=== PATIENT | female | born 1950 | race African-American/Black ===

== ENCOUNTER 2016-03-25 12:03 | Emergency (ER) | payer OTHER ==
[~2016-03-25] VITALS: Ht 154.9 cm; Wt 107.0 kg
[2016-03-25 12:54] LABS: MCH 31.4 PG (29.0-34.0); MCHC 33.1 G/DL (30.0-36.0); MCV 94.6 FL (83-99); MEAN PLAT.VOLUME 9.2 uM^3 (9.5-12.4); PLATELET COUNT 304 K/uL (156-360); RBC DIS.WIDTH-CV 12.4 % (11.8-14.6); RBC DIS.WIDTH-SD 40.8 % (39-53); WHITE BLOOD COUNT 7.5 K/uL (4.1-10.2)
[2016-03-25 13:15] LABS: TROP-I INTERPRETATION NEGATIVE; TROPONIN-I < 0.01 ng/mL (0.0-0.30)
[2016-03-25] MEDS ORDERED: ATENOLOL50 MG PO (15:22)
[2016-03-25] MEDS ORDERED: LOSARTAN POTASS50 MG PO (15:23)
[2016-03-25] MEDS ORDERED: ALDACTAZIDE 251 EACH PO (15:24)
[2016-03-25] MEDS ORDERED: LO-DOSE ASPIRIN81 M2 PO (15:25)
[2016-03-25] MEDS ORDERED: MOTRIN400 MG PO (16:36)
[2016-03-25] MEDS ORDERED: PERCOCET 5/31 TABLET PO (16:36)
[2016-03-25 16:52] VITALS: BP 131/68
[2016-03-25 19:21] LABS: CHLORIDE 100 mEq/L (99-109); POTASSIUM 3.9 mEq/L (3.7-5.4); SODIUM 138 mEq/L (136-147)
[2016-03-25 19:23] LABS: GLUCOSE 139 mg/dL (70-99)
[2016-03-25 19:24] LABS: ANION GAP 12 MEQ/L (2-14)
[2016-03-25 19:27] LABS: GFR ESTIMATE (CALCULATED) > 59 mL/min/
[2016-03-25 19:28] LABS: UREA NITROGEN (BUN) 28 mg/dL (9-23)
== END 2016-03-25 17:10 | disposition home or self-care (01) ==
LOC: EME 12:03
DX: M17.11 Unilateral primary osteoarthritis, right knee (principal); R00.2 Palpitations; D64.9 Anemia, unspecified; R73.9 Hyperglycemia, unspecified; I10 Essential (primary) hypertension; Z86.718 Personal history of other venous thrombosis and embolism
CPT/HCPCS: 71020; 73564; 80048; 84484; 85027; 93005; 93971; 99281; 99285

== ENCOUNTER 2016-05-08 06:54 | Emergency (ER) | payer OTHER ==
[~2016-05-08] VITALS: Ht 154.9 cm; Wt 104.5 kg
[~2016-05-08 06:54] MED LIST: ALDACTAZIDE 251 EACH PO; ATENOLOL50 MG PO; LO-DOSE ASPIRIN81 M2 PO; LOSARTAN POTASS50 MG PO; MOTRIN400 MG PO; PERCOCET 5/31 TABLET PO
[2016-05-08] MEDS ORDERED: PROBENECID-COL1 EACH PO (07:36)
[2016-05-08 07:59] LABS: EOSINOPHIL (%) 2.8 % (0-5); EOSINOPHIL COUNT 0.2 K/uL (0-0.3); HEMATOCRIT 33.2 % (36.0-46.0); IMMATURE GRANULOCYTE (%) 0.3 % (0.0-0.7); IMMATURE GRANULOCYTE COUNT 0.2 K/uL; LYMPHOCYTE COUNT 1.4 K/uL (1.0-2.8); MCHC 33.4 G/DL (30.0-36.0); MCV 92.7 FL (83-99); MEAN PLAT.VOLUME 9.1 uM^3 (9.5-12.4); MONOCYTE (%) 9.6 % (3-12); MONOCYTE COUNT 0.6 K/uL (0-0.8); NEUTROPHIL (%) 66.1 % (45-76); NEUTROPHIL COUNT 4.4 K/uL (1.8-6.4); PLATELET COUNT 259 K/uL (156-360); RBC DIS.WIDTH-CV 12.4 % (11.8-14.6); RBC DIS.WIDTH-SD 40.4 % (39-53); RED BLOOD COUNT 3.58 M/uL (3.80-5.20); WHITE BLOOD COUNT 6.7 K/uL (4.1-10.2)
[2016-05-08 08:09] LABS: INTER. NORMALIZED RATIO 1.2; PROTHROMBIN TIME 12.1 (9.2-11.2)
[2016-05-08 08:24] LABS: ANION GAP 8 MEQ/L (2-14); CHLORIDE 100 MEQ/L (99-109); POTASSIUM 3.9 MEQ/L (3.7-5.4); SAMPLE HEMOLYSIS CHECK 0; SAMPLE ICTERIC CHECK 0; SAMPLE LIPEMIA CHECK 0; SODIUM 137 MEQ/L (136-147)
[2016-05-08 08:29] LABS: GFR ESTIMATE (CALCULATED) > 59 mL/min/; GLUCOSE 104 mg/dL (70-99); UREA NITROGEN (BUN) 21 mg/dL (9-23)
[2016-05-08] MEDS ORDERED: PERCOCET 5/31 TABLET PO (10:03)
[2016-05-08 10:25] VITALS: BP 118/68
== END 2016-05-08 10:27 | disposition home or self-care (01) ==
LOC: EME 06:54
PROVIDERS: Emergency Medicine
DX: S86.901A Unspecified injury of unspecified muscle(s) and tendon(s) at lower leg level, right leg, initial encounter (principal); M17.9 Osteoarthritis of knee, unspecified; X50.9XXA Other and unspecified overexertion or strenuous movements or postures, initial encounter; Z88.8 Allergy status to other drugs, medicaments and biological substances; I10 Essential (primary) hypertension; Z86.718 Personal history of other venous thrombosis and embolism
CPT/HCPCS: 71010; 80048; 85025; 85610; 93971; 99281; 99284

== ENCOUNTER 2016-11-02 20:56 | Inpatient (IN) | payer OTHER ==
[~2016-11-02] VITALS: Ht 152.4 cm; Wt 111.0 kg
[~2016-11-02 20:56] MED LIST changes: +ALDACTONE25 MG PO; +ASPIRIN81 M2 PO; +COZAAR100 MG PO; +FERROUS SULFAT325 MG PO; +GOUT MED; +HYDROCHLOROTHIA25 MG PO; +NORVASC10 MG PO; +PRAVACHOL10 MG PO; +TENORMIN50 MG PO
[2016-11-03] VITALS (8 sets, daily range): BP systolic 96–142; BP diastolic 53–72
[2016-11-04 03:53] VITALS: BP 157/74
[2016-11-04 07:23] LABS: HEMATOCRIT 30.9 % (36.0-46.0); MCV 94.8 FL (83-99)
[2016-11-04 07:51] LABS: ANION GAP 11 MEQ/L (2-14); CHLORIDE 103 MEQ/L (99-109); GFR ESTIMATE (CALCULATED) > 59 mL/min/; GLUCOSE 114 mg/dL (70-99); SAMPLE HEMOLYSIS CHECK 0; SAMPLE ICTERIC CHECK 0; SAMPLE LIPEMIA CHECK 0; SODIUM 140 MEQ/L (136-147); UREA NITROGEN (BUN) 16 mg/dL (9-23)
[2016-11-04 08:11] VITALS: BP 113/59
[2016-11-04 12:06] VITALS: BP 114/56
[2016-11-04 16:11] VITALS: BP 132/63
[2016-11-04 20:18] VITALS: BP 112/56
[2016-11-04 23:36] VITALS: BP 121/58
[2016-11-05 03:48] VITALS: BP 137/63
[2016-11-05 05:49] LABS: HEMATOCRIT 29.8 % (36.0-46.0)
[2016-11-05 08:19] VITALS: BP 119/59
[2016-11-05] MEDS ORDERED: ELIQUIS2.5 MG PO (09:32)
[2016-11-05] MEDS ORDERED: OXYCODONE HCL5 MG PO (09:32)
[2016-11-05 12:00] VITALS: BP 119/58
== END 2016-11-05 13:50 | DRG 470 ==
LOC: ENRESERV 20:56 → 2SOUTH 11-03 05:23 → 3WEST 11-03 10:16 → 2SOUTH 11-03 12:53 → 3WEST 11-05 13:50
PROVIDERS: Orthopaedic Surgery
PROC: 0SRC0J9 Replacement of Right Knee Joint with Synthetic Substitute, Cemented, Open Approach (ICD-10-PCS; principal; 2016-11-03)
DX: M17.11 Unilateral primary osteoarthritis, right knee (principal); M06.9 Rheumatoid arthritis, unspecified; M10.9 Gout, unspecified; I10 Essential (primary) hypertension; E78.00 Pure hypercholesterolemia, unspecified; Z86.718 Personal history of other venous thrombosis and embolism; Z79.82 Long term (current) use of aspirin; Z79.01 Long term (current) use of anticoagulants; Z80.1 Family history of malignant neoplasm of trachea, bronchus and lung; Z82.49 Family history of ischemic heart disease and other diseases of the circulatory system; Z83.3 Family history of diabetes mellitus
CPT/HCPCS: 80048; 85014; 85018; C1713; J0690; J1885; J2250; J2405; J2765; J3010; J7050; J7120; L1820; S0020

== ENCOUNTER 2017-03-20 07:23 | Emergency (ER) | payer OTHER ==
[~2017-03-20] VITALS: Ht 154.9 cm; Wt 107.2 kg
[~2017-03-20 07:23] MED LIST changes: +ELIQUIS2.5 MG PO; +OXYCODONE HCL5 MG PO
[2017-03-20] MEDS ORDERED: PREDNISONE10 MG PO (08:11)
[2017-03-20] MEDS ORDERED: FLEXERIL10 MG PO (08:12)
[2017-03-20 09:10] VITALS: BP 144/77
== END 2017-03-20 09:17 | disposition home or self-care (01) ==
LOC: EME 07:23
DX: S39.012A Strain of muscle, fascia and tendon of lower back, initial encounter (principal); M79.1 Myalgia; X58.XXXA Exposure to other specified factors, initial encounter; G89.29 Other chronic pain; Z86.718 Personal history of other venous thrombosis and embolism
CPT/HCPCS: 99281; 99285